=== PATIENT | female | born 1960 | race Hispanic/Latino ===

== ENCOUNTER 2017-08-05 10:30 | Emergency (ER) | payer MEDICAID, OTHER ==
[2017-08-05 10:52] LABS: BASOPHILS % (AUTO) 0.9 % (0.0-5.0); HEMATOCRIT 37.5 % (36-48); LYMPHOCYTES % (AUTO) 33.6 % (21.0-51.0); MEAN CORPUSCULAR HEMOGLOBIN 35.1 pg (27.0-33.0); MEAN CORPUSCULAR HGB CONC 35.8 g/dL (32.0-36.0); MONOCYTES % (AUTO) 7.4 % (3.0-13.0); NEUTROPHILS % (AUTO) 56.1 % (40.0-77.0); NUCLEATED RED BLOOD CELLS 0.1 % (0.0-0.19); PLATELET COUNT (AUTO) 243 K/uL (130-400); RED BLOOD CELL COUNT(AUTO) 3.82 MIL/uL (4.00-5.50); RED CELL DISTRIBUTION WIDTH 14.5 % (11.0-15.5); WHITE BLOOD COUNT (AUTO) 5.1 K/uL (4.8-10.8)
[2017-08-05] MEDS ORDERED: KETOROLAC TROMETHAMINE 30MG/ML ONE (10:57)
[2017-08-05] MEDS ORDERED: ORPHENADRINE CITRATE 30 MG/ML ML ONE (10:57)
[2017-08-05 11:02] LABS: CREATININE 0.7 mg/dL (0.5-1.5); POTASSIUM 3.2 mmol/L (3.5-5.1)
[2017-08-05 11:07] LABS: ALBUMIN 3.7 g/dL (3.5-5.0); BILIRUBIN,TOTAL 0.2 mg/dL (0.2-1.0); TOTAL PROTEIN, SERUM 7.4 g/dL (6.0-8.3)
[2017-08-05 11:53] LABS: APPEARANCE,URINE Clear (CLEAR); BILIRUBIN,URINE Negative (NEGATIVE); COLOR,URINE Yellow (YELLOW); GLUCOSE, URINE (UA) Negative (NEGATIVE); KETONES,URINE Negative (NEGATIVE); LEUKOCYTE ESTERASE ,URINE Moderate (NEGATIVE); NITRATE,URINE Negative (NEGATIVE); OCCULT BLOOD,URINE Negative (NEGATIVE); PROTEIN,URINE Negative (NEGATIVE); UROBILINOGEN,URINE 0.2 mg/dL (0.2-1.0)
[2017-08-05] MEDS ORDERED: POTASSIUM CHLORIDE 20 MEQ ERTAB PO ONE (11:54)
[2017-08-05 12:04] LABS: RBC,URINE 0-1 /HPF (0-1)
[2017-08-05 12:05] LABS: BACTERIA,URINE Few /HPF (None Seen)
== END 2017-08-05 16:23 | disposition home or self-care (01) ==
LOC: EDH 10:30
DX: M62.838 Other muscle spasm (principal); G14 Postpolio syndrome; E87.6 Hypokalemia; E11.9 Type 2 diabetes mellitus without complications; E83.51 Hypocalcemia; Z90.710 Acquired absence of both cervix and uterus; Z98.890 Other specified postprocedural states
CPT/HCPCS: 36415; 80053; 81001; 85025; 93005; 96374; 96375; 99285; J1885; J2360